=== PATIENT | male | born 1955 | race Caucasian/White ===

== ENCOUNTER 2020-09-24 18:19 | Inpatient (IN) | payer OTHER, MEDICARE ==
[2020-09-24 18:27] VITALS: BMI 34.9
[2020-09-24 20:24] LABS: BASO % 0.7 % (0-2.0); EOS % 1.5 % (0-4.5); HEMATOCRIT 43.8 % (35.4-49); HEMOGLOBIN 15.1 GM/dL (11.7-16.9); MCH 29.8 pg (25.7-33.7); MCHC 34.4 g/dl (32.0-35.9); MEAN CELL VOLUME 86.7 fl (80-96); MEAN PLT VOLUME 8.4 fl (7.5-11.1); MONO % 8.8 % (3.8-10.2); PLATELET COUNT 240 K/MM3 (134-434); RBC 5.05 M/mm3 (4.00-5.60); RDW 14.2 % (11.9-15.9); WHITE BLOOD COUNT 8.6 K/mm3 (4.0-10.0)
[2020-09-24 21:00] LABS: CHLORIDE 107 mmol/L (98-107); POTASSIUM 3.9 mmol/L (3.5-5.1); SODIUM 139 mmol/L (136-145)
[2020-09-24 21:02] LABS: ALBUMIN 3.9 g/dl (3.4-5.0); CALCIUM 8.9 mg/dL (8.5-10.1)
[2020-09-24 21:03] LABS: ANION GAP 9 MMOL/L (8-16); BLOOD UREA NITROGEN 19.8 mg/dL (7-18); CO2 23 mmol/L (21-32); GLUCOSE,RANDOM 97 mg/dL (74-106)
[2020-09-24 21:06] LABS: CREATININE 0.8 mg/dL (0.55-1.3); SGOT/AST 27 U/L (15-37); SGPT/ALT 34 U/L (13-61)
[2020-09-24 21:07] LABS: BILIRUBIN,TOTAL 0.6 mg/dL (0.2-1); TOT PROT 7.5 g/dl (6.4-8.2)
[2020-09-24 21:08] LABS: ALK PHOS 79 U/L (45-117)
[2020-09-24] MEDS ORDERED: VANCOMYCIN 1 GM in D5W (PRE-DOCKED) 1,000 MG/250 ML IVPB ONE (21:30)
[2020-09-24] MEDS ORDERED: VANCOMYCIN 1 GRAM (PRE-DOCKED) 1,000 MG/250 ML BAG IVPB ONE (22:12)
[2020-09-25] MEDS ORDERED: FUROSEMIDE 40 MG/4 ML INJECTABLE VIAL IVPUSH ONE ×2 (00:38→14:00)
[2020-09-25] MEDS ORDERED: CEFAZOLIN 500 MG in DEXTROSE 5%-WATER - 50 ML IVPB SCH (02:00)
[2020-09-25] MEDS ORDERED: CEFAZOLIN 1 GM/D5W 1 GM/50 ML BAG ONE ×2 (02:34→09:24)
[2020-09-25] MEDS: CEFAZOLIN 1 GM/D5W 1 GM/50 ML BAG IVPB SCH ×3 (02:39→17:37)
[2020-09-25 05:56] LABS: HEMATOCRIT 44.7 % (35.4-49); HEMOGLOBIN 15.4 GM/dL (11.7-16.9); MCH 29.8 pg (25.7-33.7); MCHC 34.4 g/dl (32.0-35.9); MEAN CELL VOLUME 86.8 fl (80-96); MEAN PLT VOLUME 8.2 fl (7.5-11.1); PLATELET COUNT 236 K/MM3 (134-434); RBC 5.15 M/mm3 (4.00-5.60); RDW 14.6 % (11.9-15.9); WHITE BLOOD COUNT 8.4 K/mm3 (4.0-10.0)
[2020-09-25 06:13] LABS: POTASSIUM 3.5 mmol/L (3.5-5.1)
[2020-09-25 06:15] LABS: CALCIUM 8.9 mg/dL (8.5-10.1)
[2020-09-25 06:16] LABS: BLOOD UREA NITROGEN 15.8 mg/dL (7-18)
[2020-09-25 06:19] LABS: CREATININE 0.8 mg/dL (0.55-1.3); PHOSPHOROUS 3.5 mg/dL (2.5-4.9)
[2020-09-25 06:20] LABS: BILIRUBIN,TOTAL 0.8 mg/dL (0.2-1); TOT PROT 7.6 g/dl (6.4-8.2)
[2020-09-25] MEDS ORDERED: ASPIRIN COATED 81 MG TABLET.EC ONE (09:23)
[2020-09-25] MEDS ORDERED: PANTOPRAZOLE 40 MG TABLET ONE (09:23)
[2020-09-25] MEDS ORDERED: ENOXAPARIN NA (PORCINE) 40 MG/0.4 ML DISP.SYRIN SQ ONE (09:24)
[2020-09-25] MEDS ORDERED: amLODIPine BESYLATE 5 MG TABLET (FP) ONE (09:24)
[2020-09-25] MEDS ORDERED: HYDROCHLOROTHIAZIDE 25 MG TABLET (FP) ONE (09:24)
[2020-09-25] MEDS: ASPIRIN COATED 81 MG TABLET.EC PO SCH (09:34)
[2020-09-25] MEDS: HYDROCHLOROTHIAZIDE 25 MG TABLET (FP) PO SCH (09:34)
[2020-09-25] MEDS: amLODIPine BESYLATE 5 MG TABLET (FP) PO SCH (09:35)
[2020-09-25] MEDS: PANTOPRAZOLE 40 MG TABLET PO SCH (09:35)
[2020-09-25] MEDS: ENOXAPARIN NA (PORCINE) 40 MG/0.4 ML DISP.SYRIN SQ SCH (09:35)
[2020-09-25] MEDS: DOXYCYCLINE HYCLATE 100 MG CAPSULE PO SCH ×2 (13:24→17:37)
[2020-09-26] MEDS: CEFAZOLIN 1 GM/D5W 1 GM/50 ML BAG IVPB SCH ×3 (02:36→18:57)
[2020-09-26 08:44] LABS: BASO % 0.7 % (0-2.0); EOS % 2.2 % (0-4.5); HEMATOCRIT 45.9 % (35.4-49); HEMOGLOBIN 16.2 GM/dL (11.7-16.9); LYMPH % 26.5 % (8-40); MCH 30.7 pg (25.7-33.7); MCHC 35.2 g/dl (32.0-35.9); MEAN CELL VOLUME 87.3 fl (80-96); MEAN PLT VOLUME 8.3 fl (7.5-11.1); MONO % 10.5 % (3.8-10.2); NEUT % 60.1 % (42.8-82.8); PLATELET COUNT 264 K/MM3 (134-434); RBC 5.26 M/mm3 (4.00-5.60); RDW 14.5 % (11.9-15.9); WHITE BLOOD COUNT 9.3 K/mm3 (4.0-10.0)
[2020-09-26 09:04] LABS: POTASSIUM 3.8 mmol/L (3.5-5.1)
[2020-09-26 09:20] LABS: BLOOD UREA NITROGEN 21.3 mg/dL (7-18); CALCIUM 9.5 mg/dL (8.5-10.1)
[2020-09-26] MEDS: FUROSEMIDE 40 MG/4 ML INJECTABLE VIAL IVPUSH SCH (09:21)
[2020-09-26] MEDS: DOXYCYCLINE HYCLATE 100 MG CAPSULE PO SCH ×2 (09:21→18:57)
[2020-09-26] MEDS: HYDROCHLOROTHIAZIDE 25 MG TABLET (FP) PO SCH (09:21)
[2020-09-26] MEDS: amLODIPine BESYLATE 5 MG TABLET (FP) PO SCH (09:21)
[2020-09-26] MEDS: ENOXAPARIN NA (PORCINE) 40 MG/0.4 ML DISP.SYRIN SQ SCH (09:21)
[2020-09-26] MEDS: PANTOPRAZOLE 40 MG TABLET PO SCH (09:21)
[2020-09-26] MEDS: ASPIRIN COATED 81 MG TABLET.EC PO SCH (09:21)
[2020-09-26 09:24] LABS: CREATININE 0.9 mg/dL (0.55-1.3)
[2020-09-26 09:25] LABS: TOT PROT 7.7 g/dl (6.4-8.2)
[2020-09-27] MEDS: CEFAZOLIN 1 GM/D5W 1 GM/50 ML BAG IVPB SCH ×2 (02:09→10:04)
[2020-09-27] MEDS ORDERED: amLODIPine BESYLATE 2.5 MG TABLET (FP) PO SCH (10:00)
[2020-09-27] MEDS: FUROSEMIDE 40 MG/4 ML INJECTABLE VIAL IVPUSH SCH (10:04)
[2020-09-27] MEDS: ASPIRIN COATED 81 MG TABLET.EC PO SCH (10:04)
[2020-09-27] MEDS: PANTOPRAZOLE 40 MG TABLET PO SCH (10:04)
[2020-09-27] MEDS: ENOXAPARIN NA (PORCINE) 40 MG/0.4 ML DISP.SYRIN SQ SCH (10:04)
[2020-09-27] MEDS: DOXYCYCLINE HYCLATE 100 MG CAPSULE PO SCH (10:04)
[2020-09-27] MEDS: HYDROCHLOROTHIAZIDE 25 MG TABLET (FP) PO SCH (10:04)
[2020-09-27 14:34] VITALS: BP 131/78; PULSE 75; TEMP 98.7
== END 2020-09-27 15:24 | disposition home or self-care (01) | DRG 602 ==
LOC: JER 18:19 → JERBED 22:56 → J6S 09-25 11:13
PROVIDERS: ADMIT Internal Medicine; ATTEND Student in an Organized Health Care Education/Training Program
DX: L03.031 Cellulitis of right toe (principal); I50.33 Acute on chronic diastolic (congestive) heart failure; M33.90 Dermatopolymyositis, unspecified, organ involvement unspecified; M79.89 Other specified soft tissue disorders; I73.00 Raynaud's syndrome without gangrene; G62.9 Polyneuropathy, unspecified; E66.9 Obesity, unspecified; Z68.35 Body mass index [BMI] 35.0-35.9, adult; I11.0 Hypertensive heart disease with heart failure; T46.1X5A Adverse effect of calcium-channel blockers, initial encounter; S90.424A Blister (nonthermal), right lesser toe(s), initial encounter; R23.8 Other skin changes; Z96.641 Presence of right artificial hip joint
CPT/HCPCS: 36415; 71046-TC-FY; 80053; 82550; 82553; 83036; 83880; 84100; 84443; 84484; 85025; 85027; 85651; 86140; 87070; 87205; 93005; 93010; 93306-TC; 93970-TC; 99285-25; C9803; U0003